=== PATIENT | female | born 1995 | race African-American/Black ===

== ENCOUNTER 2018-12-22 16:12 | Emergency (ER) | payer SELFPAY ==
[~2018-12-22] VITALS: Ht 170.2 cm; Wt 56.0 kg
[2018-12-22 16:17] VITALS: Ht 170.2 cm; Wt 56.0 kg
[2018-12-22] MEDS ORDERED: ONDANSETRON 4 MG INJ IV STA (16:30)
[2018-12-22] MEDS ORDERED: morphine 2 MG INJ IV STA (16:30)
[2018-12-22] MEDS ORDERED: SOD CHLORIDE 0.9% 1,000 ML IV STA (16:30)
[2018-12-22] MEDS ORDERED: ONDA8TAB14 PO (18:26)
[2018-12-22] MEDS ORDERED: ACET500C5 PO (18:26)
[2018-12-22] MEDS ORDERED: AZIT250T PO (18:26)
--- NOTE | 2018-12-22 18:31 | ERD ---
ER Documentation Chief Complaint Chief Complaint fever ,abd pain , nausea/vomiting/diarrhea x 4 days HPI 23-year-old female presents for a history of diarrhea and nausea. She is vomited one time. She also has sore throat and congestion. She had fevers at home as well. She is referred by urgent care for further evaluation of abd ominal pain. She denies . ROS All systems reviewed and are negative except as per history of present illness. Medications Home Meds Active Scripts Azithromycin* (Zithromax*) 250 Mg Tablet, 250 MG PO .ZPACK DIRECTED, #6 TAB TAKE 500 MG (2 TABS) THE FIRST DAY THEN 250 MG (1 TAB) DAYS 2-5 Prov:GIN HU MD 12/22/18 Ondansetron (Ondansetron Odt) 8 Mg Tab.rapdis, 8 MG PO Q6H PRN for NAUSEA AND/OR VOMITING, #8 TAB Prov:GIN HU MD 12/22/18 Acetaminophen* (Tylophen*) 500 Mg Capsule, 1 CAP PO Q6H PRN for PAIN AND OR ELEVATED TEMP, #15 CAP Prov:GIN HU MD 12/22/18 Allergies Allergies: Coded Allergies: Penicillins (Verified Allergy, Unknown, RASH, 12/22/18) amoxicillin (Verified Allergy, Unknown, RASH, 12/22/18) PMhx/Soc Medical and Surgical Hx: pt denies Medical Hx, pt denies Surgical Hx Hx Alcohol Use: No Hx Substance Use: No Hx Tobacco Use: No Smoking Status: Never smoker FmHx Family History: No diabetes, No coronary disease, No other Physical Exam Vitals Vital Signs Date Temp Pulse Resp B/P (MAP) Pulse Ox O2 O2 Flow FiO2 Time Delivery Rate 12/22/18 98.1 72 18 107/55 98 16:17 (72) Physical Exam Const: No acute distress Head: Atraumatic Eyes: Normal Conjunctiva ENT: Normal External Ears, Nose and Mouth. TMs normal. Purulent postnasal drip and tonsils 3+ with redness. Neck: Full range of motion. No meningismus. Resp: Clear to auscultation bilaterally Cardio: Regular rate and rhythm, no murmurs Abd: Soft, mild diffuse tenderness in lower abdomen right greater than left. No rebound. No Vaughn sign., non distended. Normal bowel sounds Skin: No petechiae or rashes Back: No midline or flank tenderness Ext: No cyanosis, or edema Neur: Awake and alert Psych: Normal Mood and Affect Result Diagram: 12/22/18 1647 12/22/18 1647 Results 24 hrs Laboratory Tests Test 12/22/18 16:47 12/22/18 16:54 White Blood Count 9.2 10^3/ul Red Blood Count 4.19 10^6/ul Hemoglobin 9.7 g/dl Hematocrit 31.4 % Mean Corpuscular Volume 74.9 fl Mean Corpuscular Hemoglobin 23.2 pg Mean Corpuscular Hemoglobin Concent 30.9 g/dl Red Cell Distribution Width 15.7 % Platelet Count 247 10^3/UL Mean Platelet Volume 10.3 fl Immature Granulocytes % 0.200 % Neutrophils % 63.7 % Lymphocytes % 19.4 % Monocytes % 16.4 % Eosinophils % 0.0 % Basophils % 0.3 % Nucleated Red Blood Cells % 0.0 /100WBC Immature Granulocytes # 0.020 10^3/ul Neutrophils # 5.8 10^3/ul Lymphocytes # 1.8 10^3/ul Monocytes # 1.5 10^3/ul Eosinophils # 0.0 10^3/ul Basophils # 0.0 10^3/ul Nucleated Red Blood Cells # 0.0 10^3/ul Urine Color YELLOW Urine Clarity SLIGHTLY CLOUDY Urine pH 7.0 Urine Specific Clemmons 1.004 Urine Ketones 1+ mg/dL Urine Nitrite NEGATIVE mg/dL Urine Bilirubin NEGATIVE mg/dL Urine Urobilinogen NEGATIVE mg/dL Urine Leukocyte Esterase TRACE Evelin/ul Urine Microscopic RBC 31 /HPF Urine Microscopic WBC 7 /HPF Urine Squamous Epithelial Cells FEW /HPF Urine Bacteria FEW /HPF Urine Hemoglobin 3+ mg/dL Urine Glucose NEGATIVE mg/dL Urine Total Protein NEGATIVE mg/dl Sodium Level 134 mmol/L Potassium Level 3.7 mmol/L Chloride Level 95 mmol/L Carbon Dioxide Level 27 mmol/L Anion Gap 12 Blood Urea Nitrogen 7 mg/dl Creatinine 0.77 mg/dl Est Glomerular Filtrat Rate mL/min > 60 mL/min Glucose Level 106 mg/dl Calcium Level 9.2 mg/dl Total Bilirubin 0.6 mg/dl Direct Bilirubin 0.00 mg/dl Indirect Bilirubin 0.6 mg/dl Aspartate Amino Transf (AST/SGOT) 27 IU/L Alanine Aminotransferase (ALT/SGPT) 18 IU/L Alkaline Phosphatase 55 IU/L Total Protein 7.7 g/dl Albumin 4.1 g/dl Globulin 3.60 g/dl Albumin/Globulin Ratio 1.13 Lipase 24 U/L POC Beta HCG, Qualitative NEGATIVE Current Medications Medications Dose Sig/Niurka Start Time Status Last (Trade) Ordered Route PRN Stop Time Admin Dose Reason Admin Sodium 1,000 ml @ Q1H STAT 12/22/18 DC 12/22/18 Chloride 1,000 mls/hr IV 16:30 16:54 12/22/18 17:29 Morphine 2 mg ONCE STAT 12/22/18 DC 12/22/18 Sulfate IV 16:30 16:54 (morphine) 12/22/18 16:31 Ondansetron 4 mg ONCE STAT 12/22/18 DC 12/22/18 HCl (Zofran IV 16:30 16:54 Inj) 12/22/18 16:31 Procedures/MDM CBC shows microcytic anemia. Patient has a known history of anemia due to heavy menstrual periods and takes iron. There is no leukocytosis. CMP shows no significant acute abnormalities. Urine shows trace leukocytes. hCG negative. Patient was given 1 L normal saline IV, morphine 2 mg a day, Zofran 4 mg IV. Rapid strep negative. Patient had a benign abdomen on serial exam without focal tenderness. She was feeling much better. Patient appears to have purulent postnasal drip and signs of possible sinusitis with nasal congestion. She may have a viral syndrome. Current signs or symptoms suggest appendicitis, surgical abdomen. We will treat empirically with Zithromax, Zofran, Tylenol, r ecommendations for 1 day recheck for recurrent lower abdominal pain, vomiting despite treatment, new worsening symptoms. Departure Diagnosis: Primary Impression: Sinusitis Sinusitis location: unspecified location Chronicity: unspecified Qualified Codes: J32.9 - Chronic sinusitis, unspecified Additional Impression: Vomiting Vomiting type: unspecified Vomiting Intractability: unspecified Nausea presence: unspecified Qualified Codes: R11.10 - Vomiting, unspecified Condition: Stable Patient Instructions: Abdominal Pain, Unknown Cause, (Female), Sinusitis, Abx Tx, Vomiting (5Y-Adult) Referrals: NO PRIMARY,CARE PHYSICIAN (PCP) Additional Instructions: Blood work normal today. Additional symptoms suggest upper respiratory infection or possibly sinusitis and we will treat for this. Drink plenty of fluids at home. Recheck on next day for lower abdominal pain, vomiting Speck treatment, new worsening symptoms. GIN HU MD Dec 22, 2018 18:31
[2018-12-22 18:44] VITALS: BP 104/67; PULSE 83; RESP 16
== END 2018-12-22 18:46 | disposition home or self-care (01) ==
LOC: FTE 16:12
DX: J32.9 Chronic sinusitis, unspecified (principal); R11.2 Nausea with vomiting, unspecified
CPT/HCPCS: 80053; 81001; 81025; 83690; 85025; 87880; J2270; J2405; J7030; 36415; 96374; 96375